=== PATIENT | female | born 1985 | race Caucasian/White ===

== ENCOUNTER → 2016-10-30 | Outpatient (CLI) | payer BC ==
[2016-10-30 16:23] VITALS: BP 126/85
== END ==
LOC: MHUC 16:07
PROVIDERS: ATTEND Physician Assistant
DX: H66.001 Acute suppurative otitis media without spontaneous rupture of ear drum, right ear (principal); J01.00 Acute maxillary sinusitis, unspecified
CPT/HCPCS: 99213